=== PATIENT | female | born 1960 | race Caucasian/White ===

== ENCOUNTER 2020-10-13 11:31 | Emergency (ER) | payer MEDICARE, MEDICAID, SELFPAY ==
[2020-10-13] VITALS (7 sets, daily range): BP systolic 110–153; BP diastolic 76–100; PULSE 80–100; RESP 16–22; TEMP -12.7–37.7; O2SAT 92–95; BMI 24.2
--- NOTE | 2020-10-13 11:59 | XR_ITS ---
WS: [id number] Portable AP upright chest, 10/13/2020 Clinical Data: COVID/SOB Comparison: None. Findings: No nodules, masses or effusions are seen. The heart is normal. The pulmonary vascularity is not increased. No pneumonia or pneumothorax is seen. The aortic arch and descending aorta show mild tortuosity. The diaphragms are flattened. XR/XR chest 1V portable [id number] Impression: Atherosclerosis and hyperinflation.
--- NOTE | 2020-10-13 19:29 | PC.NURSE ---
Assumed care of this patient at this time.
--- NOTE | 2020-10-13 19:59 | ED_ITS ---
HPI - COVID General: Chief Complaint: COVID symptoms Stated Complaint: sob, covid positive Time Seen by Provider: 10/13/20 19:30 Triage information: Has fever, cough or shortness of breath . Exposure to COVID + person last 14 days History of Present Illness: HPI Narrative: 60-year-old female says she has been sick since 10/05 or so. She is experienced fever, nausea, diarrhea, body aches. She says she has not been able to eat because she is very weak generally. She has been coughing, and has gotten short of breath today. No sputum production. She tested positive on 10/06 at [facility]. complaint: known COVID positive Prior covid testing: yes, results known Prior testing date: 10/06/20 COVID 19 common symptoms: positive fever(s), chills, cough, non-productive cough, dyspnea, fatigue, body aches, headache(s), throat pain, nasal congestion, nausea and diarrhea; negative vomiting COVID 19 other sytmptoms: positive chest pressure; negative requiring oxygen, respiratory distress, cyanosis or confusion Onset (ago): day(s) Severity: moderate Pertinent comorbid conditions: diabetes COVID Results: No Data to Display Review of Systems Const: Reports: fever(s), chills, body aches and fatigue ENMT: Reports: throat pain and nasal congestion Resp: Reports: dyspnea and non-productive cough GI: Reports: nausea and diarrhea; Denies: vomiting Neuro: Reports: headache(s); Denies: confusion Physical Exam Const: COMMON NORMALS: no acute distress and patient oriented x3 GENERAL APPEARANCE: cooperative and ill appearing; not frail appearing ORIENTATION/CONSCIOUSNESS: Yes awake Eye: COMMON NORMALS: Equal, round and reactive pupils present and EOMs intact bilaterally PUPIL: Yes Equal, round and reactive pupils present Chest: COMMONS NORMALS: normal inspection of the chest Resp: COMMON NORMALS: No use of accessory muscles and clear to auscultation bilaterally EFFORT & INSPECTION: Yes tachypneic and No respiratory distress AUSCULTATION: clear to auscultation bilaterally Cardio: COMMON NORMALS: regular rate and regular rhythm RATE: regular rate RHYTHM: regular rhythm GI: COMMON NORMALS: Soft to palpation INSPECTION: Yes normal to inspection PALPATION: Yes Soft to palpation Neuro: COMMON NORMALS: patient oriented x3 Course Vital Signs: Vital signs: Vital Signs Temperature 99.5 F 10/13/20 21:32 Pulse Rate 80 10/13/20 22:00 Respiratory Rate 18 10/13/20 22:00 Blood Pressure 145/77 10/13/20 22:00 Pulse Oximetry 94 10/13/20 22:00 MDM - COVID 2 MDM Narrative: Medical decision making narrative: 60-year-old female with COVID-19. Her symptoms are mainly gastrointestinal. She is having trouble eating. She is short of breath as well, but her oxygen saturations are above 93% on room air at rest. She is diabetic. She is gotten monoclonal antibody infusion here. We will send her home with symptomatic treatment otherwise. Lab Data: Labs: Lab Results 10/13/20 10/13/20 10/13/20 Range/Units 20:09 20:10 20:10 WBC 6.3 (4.0-10.0) 10^3/ uL RBC 5.53 H (4.1-5.3) 10^6/u L Hgb 15.8 H (11.5-15.3) g/dL Hct 49.3 H (37.0-47.0) % MCV 89.2 (81-99) fl MCH 28.6 (28.0-34.0) pg MCHC 32.0 (30.0-36.0) g/dL RDW 13.8 (12.1-15.1) % Plt Count 223 (130-400) 10^3/c mm MPV 11.5 H (7.4-10.4) fL Neut % (Auto) 67.7 % Lymph % (Auto) 24.6 % [place] % (Auto) 7.0 % Eos % (Auto) 0.2 % Baso % (Auto) 0.2 % Neut # (Auto) 4.23 (1.8-7.7) 10^3/u L Lymph # (Auto) 1.5 (0.8-4.8) 10^3/u L [place] # (Auto) 0.4 (0.2-0.9) 10^3/u L Eos # (Auto) 0.0 (0.0-0.8) 10^3/u L Baso # (Auto) 0.0 (0.0-0.1) 10^3/u L Nucleated RBC % (a uto) 0 % Nucleated RBCs # 0.0 /100WBC D-Dimer 2.79 H (0-0.59) ug/mIFE U Specimen Type Arterial Sample Site Brachial, right ABG pH 7.42 (7.35-7.45) ABG pCO2 33.4 L (35-45) mmHg ABG pO2 61.3 L (80.0-100.0) mmH g ABG HCO3 21.4 L (22-26) mmol/L ABG Base Excess -2.3 L (-2.0-2.0) mmol/ L [place] Test N/a Hematocrit 46.8 (37-47) % O2 Delivery Device Room air FiO2 21.0 % [employer] ID Harkr Sodium (136-145) mmol/L Potassium (3.5-5.1) mmol/L Chloride (98-107) mmol/L Carbon Dioxide (22-29) mmol/L Anion Gap (5-19) BUN (8-23) mg/dL Creatinine (0.5-0.9) mg/dL GFR Calculation (90-130) mL/min Glucose (65-115) mg/dL Calculated Osmolal ity (285-295) mOsm/k g Lactic Acid (0.5-2.2) mmol/L Calcium (8.5-10.5) mg/dL Total Bilirubin (0.15-1.2) mg/dL AST (0-32) U/L ALT (0-33) U/L Alkaline Phosphata se (35-105) IU/L C-Reactive Protein (0.0-4.9) mg/L Total Protein (6.6-8.7) g/dL Albumin (3.5-5.2) g/dL Globulin (1.3-4.6) g/dL 10/13/20 10/13/20 Range/Units 20:10 20:10 WBC (4.0-10.0) 10^3/ uL RBC (4.1-5.3) 10^6/u L Hgb (11.5-15.3) g/dL Hct (37.0-47.0) % MCV (81-99) fl MCH (28.0-34.0) pg MCHC (30.0-36.0) g/dL RDW (12.1-15.1) % Plt Count (130-400) 10^3/c mm MPV (7.4-10.4) fL Neut % (Auto) % Lymph % (Auto) % [place] % (Auto) % Eos % (Auto) % Baso % (Auto) % Neut # (Auto) (1.8-7.7) 10^3/u L Lymph # (Auto) (0.8-4.8) 10^3/u L [place] # (Auto) (0.2-0.9) 10^3/u L Eos # (Auto) (0.0-0.8) 10^3/u L Baso # (Auto) (0.0-0.1) 10^3/u L Nucleated RBC % (a uto) % Nucleated RBCs # /100WBC D-Dimer (0-0.59) ug/mIFE U Specimen Type Sample Site ABG pH (7.35-7.45) ABG pCO2 (35-45) mmHg ABG pO2 (80.0-100.0) mmH g ABG HCO3 (22-26) mmol/L ABG Base Excess (-2.0-2.0) mmol/ L [place] Test Hematocrit (37-47) % O2 Delivery Device FiO2 % [employer] ID Sodium 135 L (136-145) mmol/L Potassium 4.5 (3.5-5.1) mmol/L Chloride 94 L (98-107) mmol/L Carbon Dioxide 20 L (22-29) mmol/L Anion Gap 25.5 H (5-19) BUN 14 (8-23) mg/dL Creatinine 0.8 (0.5-0.9) mg/dL GFR Calculation 73.2 L (90-130) mL/min Glucose 165 H (65-115) mg/dL Calculated Osmolal ity 284 L (285-295) mOsm/k g Lactic Acid 3.3 H (0.5-2.2) mmol/L Calcium 9.6 (8.5-10.5) mg/dL Total Bilirubin 0.9 (0.15-1.2) mg/dL AST 64 H (0-32) U/L ALT 37 H (0-33) U/L Alkaline Phosphata se 66 (35-105) IU/L C-Reactive Protein 193.2 H (0.0-4.9) mg/L Total Protein 7.9 (6.6-8.7) g/dL Albumin 3.8 (3.5-5.2) g/dL Globulin 4.1 (1.3-4.6) g/dL COVID Results: No Data to Display Discharge Plan Discharge Patient Disposition: Home Clinical Impression: COVID-19 Condition: Stable Prescriptions: New Zofran 4 mg tablet 4 mg PO Q6H PRN (Reason: nausea and vomiting) Qty: 10 RF: 0 Prevacid 30 mg capsule,delayed release(DR/EC) 30 mg PO DAILY Qty: 30 RF: 0 No Action metformin 500 mg tablet 1,000 mg PO BID RF: 0 zinc 100 mg Tablet 100 mg PO DAILY RF: 0 Vitamin C 250 mg Tablet 250 mg PO DAILY RF: 0 lisinopril 10 mg tablet 10 mg PO DAILY RF: 0 Vitamin D3 25 mcg (1,000 unit) Tablet 25 mcg PO DAILY RF: 0 fenofibrate 54 mg tablet 54 mg PO DAILY RF: 0 Discharge Orders: Discharge ED (Routine); Ordered 10/13/20 Ordered By: Vikram Walker Discharge Diet: Advance as tolerated and Clear Liquid Discharge Activity: Limit activity as instructed Patient Instructions: Gastroenteritis (ED) Activity Restrictions/Additional Instructions: Use medication for symptomatic treatment as directed. It will help with your nausea, stomach pain, etc. Follow a clear liquid diet and advance as tolerated. Return for worsening shortness of breath, inability to tolerate liquids despite treatment, any other concerning symptoms. Coding Level of Care Code ED Gas Treater for Ralph Fwd Exam Detailed
[2020-10-13 20:20] LABS: ABG PCO2 33.4 mmHg (35-45); ABG PH Result 7.42 (7.35-7.45); Arterial Blood Gas Hematocrit 46.8 % (37-47); Base Excess ABG -2.3 mmol/L (-2.0-2.0); Blood Gas Operator Identificat HARKR; Blood Gas Sample Site Brachial, right; Blood Gas Sample Type Arterial; HCO3 ABG 21.4 mmol/L (22-26); Oxygen Device ROOM AIR; PO2 ABG 61.3 mmHg (80.0-100.0)
[2020-10-13 20:27] LABS: Basophils % 0.2 %; Eosinophils % 0.2 %; Hematocrit 49.3 % (37.0-47.0); Hemoglobin 15.8 g/dL (11.5-15.3); Lymphocytes # 1.5 10^3/uL (0.8-4.8); Lymphocytes % 24.6 %; Mean Corpuscular Hemoglobin 28.6 pg (28.0-34.0); Mean Corpuscular Volume 89.2 fl (81-99); Mean Platelet Volume 11.5 fL (7.4-10.4); Monocytes # 0.4 10^3/uL (0.2-0.9); Neutrophils # 4.23 10^3/uL (1.8-7.7); Neutrophils % 67.7 %; Nucleated Red Blood Cells % 0 %; Platelet Count 223 10^3/cmm (130-400); Red Blood Count 5.53 10^6/uL (4.1-5.3); Red Cell Distribution Width 13.8 % (12.1-15.1); White Blood Count 6.3 10^3/uL (4.0-10.0)
[2020-10-13 20:50] LABS: Lactic Sepsis W/Reflex 3.3 mmol/L (0.5-2.2)
[2020-10-13] MEDS: ondansetron 2 mg/ML SDV 2 mL 4 MG IV (21:04)
[2020-10-13] MEDS: dexamethasone 4 mg/mL INJ 6 MG IVP (21:04)
[2020-10-13] MEDS: sodium chloride 0.9% 1,000 ML 999 ML IV (21:05)
[2020-10-13 21:06] LABS: Alanine Aminotransferase 37 U/L (0-33); Albumin Level 3.8 g/dL (3.5-5.2); Alkaline Phosphatase 66 IU/L (35-105); Blood Urea Nitrogen 14 mg/dL (8-23); C Reactive Protein 193.2 mg/L (0.0-4.9); Calcium 9.6 mg/dL (8.5-10.5); Carbon Dioxide 20 mmol/L (22-29); Chloride 94 mmol/L (98-107); Globulin 4.1 g/dL (1.3-4.6); Glomerular Filtration Rate 73.2 mL/min (90-130); Glucose 165 mg/dL (65-115); Osmolality Calculated 284 mOsm/kg (285-295); Sodium 135 mmol/L (136-145); Total Bilirubin 0.9 mg/dL (0.15-1.2); Total Protein 7.9 g/dL (6.6-8.7)
[2020-10-13 21:13] LABS: Anion Gap 25.5 (5-19); Aspartate Amino Transferase 64 U/L (0-32); Potassium 4.5 mmol/L (3.5-5.1)
[2020-10-13 21:22] LABS: D Dimer 2.79 ug/mIFEU (0-0.59)
[2020-10-13 22:10] LABS: Reflex Lactate Order REFLEX LACTIC ORDERD
== END 2020-10-13 22:32 | disposition home or self-care (01) ==
PROVIDERS: Emergency Provider Emergency Medicine
DX: U07.1 COVID-19 (principal); Z79.84 Long term (current) use of oral hypoglycemic drugs
CPT/HCPCS: 36600; 71045; 80053; 82803; 83605; 85025; 85378; 86140; 96365; 96375; 99284; J1100; J2405; J7030

== ENCOUNTER 2021-06-09 15:03 | Emergency (ER) | payer MEDICARE, MEDICAID, SELFPAY ==
[2021-06-09 15:14] VITALS: BP 142/77; PULSE 82; RESP 18; TEMP 36.1; O2SAT 96; BMI 29.0
--- NOTE | 2021-06-09 15:24 | ECG_ITS ---
[facility] Test Date: 2021-06-09 Pat Name: Marybeth Montague Department: Room: Gender: Female Fudger: : 1960 Requested By: Duane Rajan Order Number: [id number] Abhay MD: James Warren M.D. Measurements Intervals [place] Rate: 76 P: 51 WV: 192 QRS: 24 QRSD: 69 T: 46 QT: 378 QTc: 427 Interpretive Statements SINUS RHYTHM NONSPECIFIC T-WAVE ABNORMALITY No previous ECG available for comparison Electronically Signed On 06-10-2021 8:14:08 CDT by James Warren M.D. [id number]
--- NOTE | 2021-06-09 15:24 | CTR_ITS ---
PROCEDURE INFORMATION: Exam: CT Head Without Contrast Exam date and time: 06/09/2021 3:47 PM Age: 61 years old Clinical indication: Syncope and collapse; Patient HX: Syncope w face first fall from seated; Additional info: + loc, hit head TECHNIQUE: Imaging protocol: Computed tomography of the head without contrast. Axial, coronal and sagittal reformatted images were created and reviewed. Radiation optimization: All CT scans at this facility use at least one of these dose optimization techniques: automated exposure control; mA and/or kV adjustment per patient size (includes targeted exams where dose is matched to clinical indication); or iterative reconstruction. COMPARISON: No relevant prior studies available. RADIATION DOSE METRICS: Total DLP (mGy-cm): 794.62 FINDINGS: Brain: Subtle, patchy areas of hypoattenuation in the periventricular and subcortical white matter, nonspecific but suggestive of mild chronic small vessel ischemic disease. No CT evidence of acute intracranial hemorrhage or acute territorial infarction. No significant mass effect or midline shift. Basal cisterns patent. Cerebral ventricles: Prominence of the cortical sulci, cisterns and ventricular system, consistent with cerebral and cerebellar volume loss. Paranasal sinuses: Unremarkable. No fluid levels. Mastoid air cells: Grossly unremarkable. Vasculature: Calcific atherosclerotic disease in the cavernous internal carotid arteries, as well as the vertebro-basilar system. Bones/joints: No acute osseous abnormality. Soft tissues: Grossly unremarkable. CT/CT head wo con* [id number] IMPRESSION: 1. No CT evidence of acute intracranial pathology. 2. Additional findings, as above.
--- NOTE | 2021-06-09 15:24 | CTR_ITS ---
PROCEDURE INFORMATION: Exam: CT Cervical Spine Without Contrast Exam date and time: 06/09/2021 3:52 PM Age: 61 years old Clinical indication: Injury or trauma; Blunt trauma; Patient HX: C/O neck/l shoulder pain after face first fall from seated; Additional info: Left shoulder pain /close to spine TECHNIQUE: Imaging protocol: Computed tomography images of the cervical spine without contrast. Axial, coronal and sagittal reformatted images were created and reviewed. Radiation optimization: All CT scans at this facility use at least one of these dose optimization techniques: automated exposure control; mA and/or kV adjustment per patient size (includes targeted exams where dose is matched to clinical indication); or iterative reconstruction. COMPARISON: CT facial bones wo con* [id number] 06/09/2021 3:50 PM RADIATION DOSE METRICS: Total DLP (mGy-cm): 420.75 FINDINGS: Bones/joints: Osteopenia Normal cervical lordosis. Congenital nonunion of the C1 posterior arch. No CT evidence of acute fracture, dislocation or subluxation. Alignment anatomic. Vertebral body heights maintained. Discs/Spinal canal/Neural foramina: Mild multilevel degenerative changes, characterized by disc space narrowing, osteophytosis and uncovertebral and facet joint hypertrophy. Mild multilevel neural foraminal narrowing, predominantly at C5-C6 and C7. No significant spinal stenosis. Lungs: Grossly unremarkable. Soft tissues: Grossly unremarkable. CT/CT cervical spin wo con* [id number] IMPRESSION: 1. No CT evidence of acute cervical spine traumatic injury. 2. Additional findings, as above.
--- NOTE | 2021-06-09 15:24 | CTR_ITS ---
PROCEDURE INFORMATION: Exam: CT Maxillofacial Without Contrast Exam date and time: 06/09/2021 3:50 PM Age: 61 years old Clinical indication: Injury or trauma; Blunt trauma (contusions or hematomas); Patient HX: Face first fall from seated, bloody nose; Additional info: Nose bleed, swelling, possioble nasal deformity TECHNIQUE: Imaging protocol: Computed tomography images of the face without contrast. Axial, coronal and sagittal reformatted images were created and reviewed. Radiation optimization: All CT scans at this facility use at least one of these dose optimization techniques: automated exposure control; mA and/or kV adjustment per patient size (includes targeted exams where dose is matched to clinical indication); or iterative reconstruction. COMPARISON: CT head wo con* [id number] 06/09/2021 3:47 PM RADIATION DOSE METRICS: Total DLP (mGy-cm): 703.9 FINDINGS: Orbital cavities: Orbits are normal. Globes are unremarkable. Bones/joints: Mildly displaced fractures of the anterior nasal bones. Paranasal sinuses: Minimal ethmoid and left maxillary sinus mucosal thickening. Soft tissues: Perinasal soft tissue injury. Other findings: Poor dentition. CT/CT facial bones wo con* [id number] IMPRESSION: 1. Mildly displaced fractures of the anterior nasal bones. 2. Additional findings, as above.
--- NOTE | 2021-06-09 15:26 | ED_ITS ---
Documented by User: SARAH Benoit 06/16/21 06:56 HPI - Head Injury General: Chief complaint: Head Injury Stated complaint: Fell and hit head and nose bleeding Time Seen by Provider: 06/09/21 15:20 History of Present Illness: Presents with nose pain. Also having left shoulder pain. History of nausea vomiting diarrhea first thing this morning. Stomach flu is going through their family presently. Patient said she went went to the bathroom. Then went sit on the edge of bed and then she passed out and woke up face down the floor. She is said she had bleeding from her nose and abrasion to her head and then abrasion on her upper gum underneath her dentures. Patient said stomach is feeling better now and she is no longer nauseous. Bleeding from the nose has stopped. History of hypertension. Associated symptoms: Reports nausea; Deny vomiting Review of Systems Narrative: Patient had syncopal episode after vomiting diarrhea this morning. Fell and struck face. Const: Denies: fever(s), chills or body aches Eyes: Denies: eye discomfort ENMT: Reports: dental pain (Has abrasion upper gum after fall.) and other (Nose and had nosebleed and does have swelling to the nose.); Denies: throat pain Card: Denies: chest pain Resp: Denies: dyspnea GI: Reports: nausea and diarrhea; Denies: abdominal pain or vomiting Musc: Reports: other (Pain upper left shoulder between cervical spine and neck) Skin/Breast: Denies: rash Neuro: Denies: headache(s) Psych: Denies: depression or suicidal ideation Physical Exam Const: COMMON NORMALS: no acute distress, patient oriented x3 and alert HENMT: COMMON NORMALS: normocephalic and external ears normal HEAD & SCALP: normocephalic NOSE: Abnormal external nose present (Swelling) nasal laceration (1 mm to bridge no active bleeding), nasal deviation (Possible), lexis al tenderness and nasal swelling EXTERNAL EAR: Yes external ears normal TEETH & GINGIVA: Yes other (Superficial laceration to upper gum right side in the front no active bleed) Eye: COMMON NORMALS: EOMs intact bilaterally Neck/C-Spine: COMMON NORMALS: no JVD CERVICAL SPINE: Yes cervical ROM normal, No pain with cervical ROM, Yes Paracervical muscle tenderness left, No Paracervical spasm and Yes Trapezius muscle tenderness left Resp: COMMON NORMALS: normal respiratory effort and No use of accessory muscles Cardio: COMMON NORMALS: no JVD GI: INSPECTION: Yes normal to inspection Extremity: COMMON NORMALS: normal to inspection and full ROM Neuro: COMMON NORMALS: patient oriented x3 SENSORIUM/ORIENTATION: Yes alert SPEECH: speech normal PUPIL EXAM: Normal pupillary reactivity/response: bilateral Psych: COMMON NORMALS: mental status grossly normal Skin: COMMON NORMALS: no rashes or lesions noted GENERAL SKIN EXAM: no rashes or lesions noted Course Vital Signs: Vital signs: Vital Signs Temperature 97.0 F L 06/09/21 15:14 Pulse Rate 75 06/09/21 18:06 Respiratory Rate 14 06/09/21 18:06 Blood Pressure 127/81 06/09/21 18:06 Pulse Oximetry 95 06/09/21 18:06 MDM - Head Injury Medcial Decision Making Patient with history of stomach flu virus today. and son have been sick with that also patient vomited and had diarrhea then had a vagal episode fell and landed on her nose from side to bed as she was sitting. X-ray reveals she fractured her nose. She has abrasion left side of her head wrist radiology studies are negative -blood work looks good. EKG was normal. patient is made r eferral to Dr. Velez. Patient given pain medication and DTaP. Patient follow-up if anysignificant worsening symptoms Lab Data : 06/09/21 16:33 06/09/21 16:33 Radiology Impressions Cervical Spine CT 06/09/21 15:24 IMPRESSION: 1. No CT evidence of acute cervical spine traumatic injury. 2. Additional findings, as above. Face CT 06/09/21 15:24 IMPRESSION: 1. Mildly displaced fractures of the anterior nasal bones. 2. Additional findings, as above. Head CT 06/09/21 15:[address]: 1[address] evidence of acute intracranial pathology. 2. Additional findings, as above. Shoulder X-Ray 06/09/21 15:28 IMPRESSION: No acute bony abnormality. Laboratory Results WBC 9.3 10^3/uL (4.0-10.0) 06/09/21 16:33 RBC 5.52 10^6/uL (4.1-5.3) H 06/09/21 16:33 Hgb 15.6 g/dL (11.5-15.3) H 06/09/21 16: Hct 47.2 % (37.0-47.0) H 06/09/21 16: MCV 85.5 fl (81-99) 06/09/21 16: MCH 28.3 pg (28.0-34.0) 06/09/21 16: MCHC 33.1 g/dL (30.0-36.0) 06/09/21 16: RDW 13.2 % (12.1-15.1) 06/09/21 16: Plt Count 220 10^3/cmm (130-400) 06/09/21 16: MPV 10.9 fL (7.4-10.4) H 06/09/21 16: Neut % (Auto) 87.3 % 06/09/21 16: Lymph % (Auto) 7.1 % 06/09/21: [place] % (Auto) 3.8 % 06/09/21 16: Eos % (Auto) 1.0 % 06/09/21 16:33 Baso % (Auto) 0.4 % 06/09/21: Neut # (Auto) 8.08 10^3/uL (1.8-7.7) H 06/09/21: Lymph # (Auto) 0.7 10^3/uL (0.8-4.8) L 06/09/21 16: [place] # (Auto) 0.4 10^3/uL (0.2-0.9) 06/09/21: Eos # (Auto) 0.1 10^3/uL (0.0-0.8) 06/09/21: Baso # (Auto) 0.0 10^3/uL (0.0-0.1) 06/09/21: Nucleated RBC % (auto) 0 % 06/09/21: Nucleated RBCs # 0.0 /100WBC 06/09/21 16:33 Sodium 138 mmol/L (136-145) 06/09/21 16: Potassium 3.9 mmol/L (3.5-5.1) 06/09/21 16: Chloride 103 mmol/L (98-107) 06/09/21 16:33 Carbon Dioxide 23 mmol/L (22-29) 06/09/21 16:33 Anion Gap 15.9 (5-19) 06/09/21 16:33 BUN 11 mg/dL (8-23) 06/09/21 16:33 Creatinine 0.7 mg/dL (0.5-0.9) 06/09/21 16:33 GFR Calculation 85.1 mL/min (90-130) L 06/09/21 16:33 Glucose 212 mg/dL (65-115) H 06/09/21 16:33 Calculated Osmolality 292 mOsm/kg (285-295) 06/09/21 16:33 Calcium 8.3 mg/dL (8.5-10.5) L 06/09/21 16:33 Hepatitis A IgM Ab Not Reportable 06/09/21 17:47 Hep Bs Antigen Non-reactive (Nonreactive) 06/09/21 17:47 Hep B Core IgM Ab Non-reactive (Nonreactive) 06/09/21 17:47 Hepatitis C Antibody Non-reactive (Nonreactive) 06/09/21 17:47 HIV 1&2 Ab & HIV 1 Ag Non-reactive (Non-Reactiv) 06/09/21 17:47 HIV 1&2 Antibody Non-reactive (Non-Reactiv) 06/09/21 17:47 [facility] [place] Reference See comment 06/09/21 17:47 Discharge Plan Discharge Patient Disposition: Home Clinical Impression: Closed fracture nasal bone, Abrasion, Vaso vagal episode Condition: Stable Prescriptions: New hydrocodone-acetaminophen 5-325 mg tablet 1 tab PO TID PRN (Reason: pain) Qty: 14 0RF No Action metformin 500 mg tablet 1,000 mg PO BID 0RF zinc 100 mg Tablet 100 mg PO DAILY 0RF Vitamin C 250 mg Tablet 250 mg PO DAILY 0RF lisinopril 10 mg tablet 10 mg PO DAILY 0RF Vitamin D3 25 mcg (1,000 unit) Tablet 25 mcg PO DAILY 0RF fenofibrate 54 mg tablet 54 mg PO DAILY 0RF Zofran 4 mg tablet 4 mg PO Q6H PRN (Reason: nausea and vomiting) Qty: 10 0RF Prevacid 30 mg capsule,delayed release(DR/EC) 30 mg PO DAILY Qty: 30 0RF Discharge Orders: Discharge ED (Routine); Ordered 06/09/21 Ordered By: Duane Rajan Discharge Diet: Usual diet Discharge Activity: Resume usual activity Activity Restrictions/Additional Instructions: Follow-up with medical provider as directed. Take medications as prescribed. Return to the ER or your medical provider if condition worsens. Please read and understand discharge instructions. If any questions ask please. We will contact you with appointment for Dr. Velez's office. Light ice to nose as needed. Can use Afrin nose spray to help with the congestion in the nose. 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 and son have been sick with that also patient vomited and had diarrhea then had a vagal episode fell an d landed on her nose from side to bed as she was sitting. X-ray reveals she fractured her nose. She has abrasion left side of her head wrist radiology studies are negative -blood work looks good. EKG was normal. patient is made referral to Dr. Velez. Patient given pain medication and DTaP. Patient follow- up if anysignificant worsening symptoms Dr. Hernandez - Patient evaluation, diagnosis, and management was performed independently by Duane Rajan. I did not personally see the patient nor staff the patient with patient's provider. I did review the patient's note today and I believe this note is consistent. Lab Data : 06/09/21 16:33 06/09/21 16:33 Radiology Impressions Cervical Spine CT 06/09/21 15:24 IMPRESSION: 1. No CT evidence of acute cervical spine traumatic injury. 2. Additional findings, as above. Face CT 06/09/21 15:24 IMPRESSION: 1. Mildly displaced fractures of the anterior nasal bones. 2. Additional findings, as above. Head CT 06/09/21 15:24 IMPRESSION: 1. No CT evidence of acute intracranial pathology. 2. Additional findings, as above. Shoulder X-Ray 06/09/21 15:28 IMPRESSION: No acute bony abnormality. Laboratory Results WBC 9.3 10^3/uL (4.0-10.0) 06/09/21 16:33 RBC 5.52 10^6/uL (4.1-5.3) H 06/09/21 16:33 Hgb 15.6 g/dL (11.5-15.3) H 06/09/21 16:33 Hct 47.2 % (37.0-47.0) H 06/09/21 16:33 MCV 85.5 fl (81-99) 06/09/21 16:33 MCH 28.3 pg (28.0-34.0) 06/09/21 16:33 MCHC 33.1 g/dL (30.0-36.0) 06/09/21 16:33 RDW 13.2 % (12.1-15.1) 06/09/21 16:33 Plt Count 220 10^3/cmm (130-400) 06/09/21 16:33 MPV 10.9 fL (7.4-10.4) H 06/09/21 16:33 Neut % (Auto) 87.3 % 06/09/21 16:33 Lymph % (Auto) 7.1 % 06/09/21 16:33 [place] % (Auto) 3.8 % 06/09/21 16:33 Eos % (Auto) 1.0 % 06/09/21 16:33 Baso % (Auto) 0.4 % 06/09/21 16:33 Neut # (Auto) 8.08 10^3/uL (1.8-7.7) H 06/09/21 16:33 Lymph # (Auto) 0.7 10^3/uL (0.8-4.8) L 06/09/21 16:33 [place] # (Auto) 0.4 10^3/uL (0.2-0.9) 06/09/21 16:33 Eos # (Auto) 0.1 10^3/uL (0.0-0.8) 06/09/21 16:33 Baso # (Auto) 0.0 10^3/uL (0.0-0.1) 06/09/21 16:33 Nucleated RBC % (auto) 0 % 06/09/21 16:33 Nucleated RBCs # 0.0 /100WBC 06/09/21 16:33 Sodium 138 mmol/L (136-145) 06/09/21 16:33 Potassium 3.9 mmol/L (3.5-5.1) 06/09/21 16:33 Chloride 103 mmol/L (98-107) 06/09/21 16:33 Carbon Dioxide 23 mmol/L (22-29) 06/09/21 16:33 Anion Gap 15.9 (5-19) 06/09/21 16:33 BUN 11 mg/dL (8-23) 06/09/21 16:33 Creatinine 0.7 mg/dL (0.5-0.9) 06/09/21 16:33 GFR Calculation 85.1 mL/min (90-130) L 06/09/21 16:33 Glucose 212 mg/dL (65-115) H 06/09/21 16:33 Calculated Osmolality 292 mOsm/kg (285-295) 06/09/21 16:33 Calcium 8.3 mg/dL (8.5-10.5) L 06/09/21 16:33 Hepatitis A IgM Ab Not Reportable 06/09/21 17:47 Hep Bs Antigen Non-reactive (Nonreactive) 06/09/21 17:47 Hep B Core IgM Ab Non-reactive (Nonreactive) 06/09/21 17:47 Hepatitis C Antibody Non-reactive (Nonreactive) 06/09/21 17:47 HIV 1&2 Ab & HIV 1 Ag Non-reactive (Non-Reactiv) 06/09/21 17:47 HIV 1&2 Antibody Non-reactive (Non-Reactiv) 06/09/21 17:47 Misc Test Reference See comment 06/09/21 17:47 Discharge Plan Discharge Patient Disposition: Home Clinical Impression: Closed fracture nasal bone, Abrasion, Vaso vagal episode Condition: Stable Prescriptions: New hydrocodone-acetaminophen 5-325 mg tablet 1 tab PO TID PRN (Reason: pain) Qty: 14 0RF No Action metformin 500 mg tablet 1,000 mg PO BID 0RF zinc 100 mg Tablet 100 mg PO DAILY 0RF Vitamin C 250 mg Tablet 250 mg PO DAILY 0RF lisinopril 10 mg tablet 10 mg PO DAILY 0RF Vitamin D3 25 mcg (1,000 unit) Tablet 25 mcg PO DAILY 0RF fenofibrate 54 mg tablet 54 mg PO DAILY 0RF Zofran 4 mg tablet 4 mg PO Q6H PRN (Reason: nausea and vomiting) Qty: 10 0RF Prevacid 30 mg capsule,delayed release(DR/EC) 30 mg PO DAILY Qty: 30 0RF Discharge Orders: Discharge ED (Routine); Ordered 06/09/21 Ordered By: Duane Rajan Discharge Diet: Usual diet Discharge Activity: Resume usual activity Activity Restrictions/Additional Instructions: Follow-up with medical provider as directed. Take medications as prescribed. Return to the ER or your medical provider if condition worsens. Please read and understand discharge instructions. If any questions ask please. We will contact you with appointment for Dr. Velez's office. Light ice to nose as needed. Can use Afrin nose spray to help with the congestion in the nose. 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
--- NOTE | 2021-06-09 15:28 | XRR_ITS ---
PROCEDURE INFORMATION: Exam: XR Left Shoulder Exam date and time: 06/09/2021 3:58 PM Age: 61 years old Clinical indication: Injury or trauma; Fall; Blunt trauma (contusions or hematomas); Shoulder; Left; Additional info: Fall, shoulder pain, positive loss of consciousness TECHNIQUE: Imaging protocol: XR Left shoulder. Views: 2 or more views. COMPARISON: CT cervical spin wo con* [id number] 06/09/2021 3:52 PM FINDINGS: Bones/joints: There is no acute fracture or dislocation. The acromioclavicular joint alignment is appropriate. The subacromial joint space is well-preserved. The glenohumeral joint is unremarkable. No calcific tendinopathy. The visualized ribs are intact. Lungs: The visualized lung apex is clear. Soft tissues: Normal. XR/XR shoulder LT min 2V* [id number] IMPRESSION: No acute bony abnormality.
[2021-06-09 16:33] VITALS: BP 122/82; PULSE 81; RESP 20; O2SAT 94
[2021-06-09 16:43] LABS: Basophils % 0.4 %; Eosinophils # 0.1 10^3/uL (0.0-0.8); Hematocrit 47.2 % (37.0-47.0); Hemoglobin 15.6 g/dL (11.5-15.3); Lymphocytes # 0.7 10^3/uL (0.8-4.8); Lymphocytes % 7.1 %; Mean Corpuscular HGB Conc 33.1 g/dL (30.0-36.0); Mean Corpuscular Hemoglobin 28.3 pg (28.0-34.0); Mean Corpuscular Volume 85.5 fl (81-99); Mean Platelet Volume 10.9 fL (7.4-10.4); Monocytes # 0.4 10^3/uL (0.2-0.9); Monocytes % 3.8 %; Neutrophils # 8.08 10^3/uL (1.8-7.7); Neutrophils % 87.3 %; Nucleated Red Blood Cells % 0 %; Platelet Count 220 10^3/cmm (130-400); Red Blood Count 5.52 10^6/uL (4.1-5.3); Red Cell Distribution Width 13.2 % (12.1-15.1); White Blood Count 9.3 10^3/uL (4.0-10.0)
[2021-06-09] MEDS: HYDROcodone-acetaminophen 5-325 mg Tablet 1 TAB PO (16:47)
[2021-06-09] MEDS: tetanus-dipt-pertussis 0.5 mL SDV IM (16:47)
[2021-06-09 17:00] LABS: Anion Gap 15.9 (5-19); Blood Urea Nitrogen 11 mg/dL (8-23); Calcium 8.3 mg/dL (8.5-10.5); Carbon Dioxide 23 mmol/L (22-29); Chloride 103 mmol/L (98-107); Glomerular Filtration Rate 85.1 mL/min (90-130); Glucose 212 mg/dL (65-115); Osmolality Calculated 292 mOsm/kg (285-295); Potassium 3.9 mmol/L (3.5-5.1); Sodium 138 mmol/L (136-145)
[2021-06-09 18:06] VITALS: BP 127/81; PULSE 75; RESP 14; O2SAT 95
[2021-06-09 18:39] LABS: HIV 1 & 2 Antibody Non-Reactive (Non-Reactiv); HIV 1 & 2 Antigen Non-Reactive (Non-Reactiv)
[2021-06-09 18:41] LABS: Hepatitis B Core IgM Non-Reactive (Nonreactive); Hepatitis B Surface Antigen Non-Reactive (Nonreactive); Hepatitis C Virus Antibody Non-Reactive (Nonreactive)
--- NOTE | 2021-06-12 12:59 | DCPLANNER ---
Addendum entered by Lexy Willis 07/20/21 11:50: Patient had a follow up appointment scheduled with Dr. Velez on 06.15.21 - patient did attend appointment. Original Note: human resources benefits manager had message to schedule a follow up appointment for patient with . human resources benefits manager sent patients information to the office of Dr. Velez. Patients information will be reviewed. Clinic will call patient with appointment information.
== END 2021-06-09 18:08 | disposition home or self-care (01) ==
PROVIDERS: Nurse Practitioner Family; Emergency Provider Nurse Practitioner Family
DX: S02.2XXA Fracture of nasal bones, initial encounter for closed fracture (principal); W18.30XA Fall on same level, unspecified, initial encounter; R55 Syncope and collapse; Z23 Encounter for immunization
CPT/HCPCS: 70450; 70486; 72125; 73030; 80048; 80074; 85025; 87806; 90471; 90715; 93005; 99283

== ENCOUNTER 2021-07-26 09:32 | Outpatient (CLI) | payer MEDICARE, MEDICAID, SELFPAY ==
--- NOTE | 2021-07-26 09:53 | MR_ITS ---
WS: [id number] MRI LEFT SHOULDER NONCONTRAST TECHNIQUE: Sagittal T2, coronal T1, T2 and proton density imaging. Axial gradient PDE imaging. CLINICAL INFORMATION: L SHOULDER PAIN COMPARISON: None. FINDINGS: Mild degenerative arthritis AC joint. Mild downsloping acromion. Slight subacromial spurring. Mild ed bárbara at the AC joint. Small amount of subacromial/subdeltoid fluid. Chronic thinning of the distal supraspinatus with tendinopathy. Tiny tear supraspinatus insertion ant eriorly. No tendon retraction. Normal infraspinatus. Normal teres minor. Normal subscapularis. Normal biceps tendon in the bicipital groove. Normal biceps labral anchor. Normal intra-articular bic eps tendon. Glenoid labrum appears grossly normal. Biceps tendon intact within the bicipital groove. Cystic degenerative change involving the greater tuberosity. Otherwise normal bone marrow signal. MR/MR shoulder LT wo con* [id number] IMPRESSION: 1. Mild degenerative arthritis at the AC joint with mild downsloping acromion. Slight subacromial spurring. 2. Tiny insertional tear supraspinatus anteriorly. No tendon retraction. Mild tendinopathy supraspinatus. 3. Rotator cuff is otherwise normal in appearance. 4. Normal biceps tendon in the bicipital groove. 5. Cystic degenerative changes involving the greater tuberosity. 6. Small amount of subacromial/subdeltoid fluid.
== END 2021-07-26 09:33 | disposition home or self-care (01) ==
LOC: RAD 09:33
PROVIDERS: Visit Provider Nurse Practitioner Family
DX: M19.012 Primary osteoarthritis, left shoulder (principal); M75.112 Incomplete rotator cuff tear or rupture of left shoulder, not specified as traumatic; M25.512 Pain in left shoulder
CPT/HCPCS: 73221

== ENCOUNTER 2021-09-11 08:45 | Outpatient (CLI) | payer MEDICARE, MEDICAID, SELFPAY ==
--- NOTE | 2021-09-11 08:51 | FL_ITS ---
WS: [id number] MODIFIED BARIUM SWALLOW HISTORY: Other dysphagia FLUOROSCOPY TIME: 2min [id number] # of spot films: 2 Modified barium swallow was performed by the speech pathologist. Fluoroscopy was provided with the pa tient in a lateral projection. Multiple food consistencies were provided. Patient swallowed all foods without difficulty. There is very minimal delay in transit of the more so lid foods at the level of the epiglottis. No aspiration or laryngeal penetration. FL/FL barium swallow modifd [id number] IMPRESSION: 1. No significant swallowing deficits. No laryngeal penetration or aspiration. Please see speech therapist report also for recommendations.
== END 2021-09-11 08:46 | disposition home or self-care (01) ==
PROVIDERS: PCP Nurse Practitioner Family; Visit Provider Family Medicine
DX: R13.19 Other dysphagia (principal)
CPT/HCPCS: 74230; 92611

== ENCOUNTER → 2021-10-02 07:54 | Outpatient (BNVA) | payer MEDICARE, MEDICAID, SELFPAY | PROVIDERS: PCP Nurse Practitioner Family; Visit Provider Surgery | DX: Z12.11 Encounter for screening for malignant neoplasm of colon (principal) | CPT/HCPCS: 99203 ==

== ENCOUNTER 2021-11-21 07:14 | Day surgery (SDC) | payer MEDICARE, MEDICAID, SELFPAY ==
[2021-11-19 09:42] VITALS: BMI 27.4
--- NOTE | 2021-11-21 07:40 | P.ANESASSM_ITS ---
Pre-Anesthetic Assessment Height/Weight: Height 1.68 m Weight 77.111 kg Operation Date: 11/21/21 09:00 Proposed Procedures p Colonoscopy 66342,Z12.11(Not Applicable) - Samuel Hassan DO Familial anesthetic complications: none Was Beta Pau taken within 24 hours: N/A Was Clonidine taken within 24 hours: N/A Last intake: > 8 hrs Social No alcohol and No tobacco Exam alert, oriented x 3, clear to auscultation bilaterally and regular rate & rhythm Airway Mallampati: Class II Dentition: false CV/HEM Hypertension Metabolic Diabetes Mellitus and Hyperlipidemia Anesthetic Plan ASA status: 3 Anesthesia: MAC Risk of > 500 ml blood loss (7ml/kg in children): No Medications/Allergies Home Medications Medication Instructions Recorded Confirmed Last Taken Type ascorbic acid (vitamin C) 250 mg 250 mg PO DAILY 10/13/20 11/19/21 10/12/20 History tablet (Vitamin C) cholecalciferol (vitamin D3) 25 25 mcg PO DAILY 10/13/20 11/19/21 10/12/20 History mcg (1,000 unit) tablet (Vitamin D3) fenofibrate 54 mg tablet 54 mg PO DAILY 10/13/20 11/19/21 10/12/20 History lansoprazole 30 mg capsule,delayed 30 mg PO DAILY #30 caps 10/13/20 11/19/21 Unknown Rx release (Prevacid) lisinopril 10 mg tablet 10 mg PO DAILY 10/13/20 11/19/21 10/12/20 History metformin 500 mg tablet 1,000 mg PO BID 10/13/20 11/19/21 10/12/20 History zinc 100 mg tablet 100 mg PO DAILY 10/13/20 11/19/21 10/12/20 History atorvastatin 10 mg tablet 10 mg PO DAILY 10/02/21 11/19/21 Unknown History canagliflozin 100 mg tablet 100 mg PO DAILY 10/02/21 11/19/21 Unknown History (Invokana) Allergies Allergy/AdvReac Type Severity Reaction Status Date / Time erythromycin base Allergy ALGY-Anaphy Verified 11/19/21 09:40 [From Erythrocin] laxis Penicillins Allergy ALGY-Anaphy Verified 11/19/21 09:40 laxis [facility] Anesthesia Medical History Diabetes mellitus Hypertension Surgical History History of laparoscopic cholecystectomy Family History Other Cancer Social History Smoking and tobacco status: former smoker Data Anesthesia Cardiac Studies: No Data to Display
[2021-11-21 08:04] VITALS: BP 144/77; PULSE 67; RESP 18; TEMP 36.5; O2SAT 95
[2021-11-21] MEDS: sodium chloride 0.9% 1,000 ML 30 ML IV (08:38)
[2021-11-21 08:39] LABS: Glucose Point of Care 137 mg/dL (70-110)
--- NOTE | 2021-11-21 09:12 | P.HP_ITS ---
Providers/Chief Complaint Primary Care Provider: Morgan Lyons NP Chief Complaint: Colon cancer screening History of Present Illness Marybeth Montague is a 61 year old female here for colonoscopy Medications/Allergies Home Medications Medication Instructions Recorded Confirmed Last Taken Type ascorbic acid (vitamin C) 250 mg 250 mg PO DAILY 10/13/20 11/19/21 11/19/21 History tablet (Vitamin C) cholecalciferol (vitamin D3) 25 25 mcg PO DAILY 10/13/20 11/19/21 11/19/21 History mcg (1,000 unit) tablet (Vitamin D3) fenofibrate 54 mg tablet 54 mg PO DAILY 10/13/20 11/19/21 11/20/21 History lansoprazole 30 mg capsule,delayed 30 mg PO DAILY #30 caps 10/13/20 11/19/21 11/20/21 Rx release (Prevacid) lisinopril 10 mg tablet 10 mg PO DAILY 10/13/20 11/19/21 11/20/21 History metformin 500 mg tablet 1,000 mg PO BID 10/13/20 11/19/21 11/20/21 History zinc 100 mg tablet 100 mg PO DAILY 10/13/20 11/19/21 11/19/21 History atorvastatin 10 mg tablet 10 mg PO DAILY 10/02/21 11/19/21 11/20/21 History canagliflozin 100 mg tablet 100 mg PO DAILY 10/02/21 11/19/21 11/20/21 History (Invokana) Allergies Allergy/AdvReac Type Severity Reaction Status Date / Time erythromycin base Allergy ALGY-Anaphy Verified 11/19/21 09:40 [From Erythrocin] laxis Penicillins Allergy ALGY-Anaphy Verified 11/19/21 09:40 laxis PFSH Acute PFSH: Medical History Diabetes mellitus Hypertension Surgical History History of laparoscopic cholecystectomy Family History Other Cancer Social History Smoking and tobacco status: former smoker Vitals/I&O/Wt Last Vital Signs Temp 97.7 F 11/21/21 08:04 Pulse 67 11/21/21 08:04 Resp 18 11/21/21 08:04 BP 144/77 11/21/21 08:04 Pulse Ox 95 11/21/21 08:04 O2 Del Method 11/21/21 08:04 Weight last 48 hrs Weight 170 lb A&P Assessment and plan (1) Colon cancer screening: Plan Colonoscopy Attestations Medical Necessity Statement*: Home Coding Level of Care Code Acute [employer] Support Planner for Chg Fwd Diagnoses Colon cancer screening Z12.11
[2021-11-21 09:44] VITALS: BP 89/45; PULSE 62; RESP 18; TEMP 36.5; O2SAT 92
--- NOTE | 2021-11-21 13:46 | ANE.PACU2 ---
Inpatient post-anesthesia follow up: Airway intact: Yes Vital signs: Temperature 97.7 F Pulse Rate 62 Respiratory Rate 18 Blood Pressure 89/45 Pulse Oximetry 92 Oxygen Delivery Me thod Room Air Oxygen Flow Rate Fraction of Inspir ed Oxygen Hydration adequate: Yes Nausea and vomiting: No Pain level: 1 Mental status: Baseline
== END 2021-11-21 10:14 | disposition home or self-care (01) ==
PROVIDERS: PCP Nurse Practitioner Family; Visit Provider Surgery
PROC: 0DJD8ZZ Inspection of Lower Intestinal Tract, Via Natural or Artificial Opening Endoscopic (ICD-10-PCS; CPT 45378; principal; 2021-11-21 09:00)
DX: Z12.11 Encounter for screening for malignant neoplasm of colon (principal); E11.9 Type 2 diabetes mellitus without complications; I10 Essential (primary) hypertension; Z87.891 Personal history of nicotine dependence; E78.5 Hyperlipidemia, unspecified
CPT/HCPCS: 36416; 82962; G0121; J2704; J7030

== ENCOUNTER 2021-12-28 15:55 | Outpatient (CLI) | payer MEDICARE, MEDICAID, SELFPAY ==
--- NOTE | 2021-12-28 | USR_ITS ---
PROCEDURE INFORMATION: Exam: US Duplex Left Lower Extremity Veins, Limited Exam date and time: 12/28/2021 4:43 PM Age: 61 years old Clinical indication: Pain; Leg, lower; Left; Additional info: Lle pain TECHNIQUE: Imaging protocol: Real-time Duplex ultrasound of the Left Lower Extremity with 2-D philip scale, color Doppler flow and spectral waveform analysis with image documentation. Limited exam focused on the left lower extremity veins. COMPARISON: No relevant prior studies available. FINDINGS: Left deep veins: Unremarkable. The common femoral, femoral, proximal profunda femoral, popliteal, posterior tibial, and peroneal veins are patent without thrombus. Normal Doppler waveforms. Normal compressibility and/or augmentation response. Left superficial veins: Unremarkable. Saphenofemoral junction is patent without thrombus. Soft tissues: Unremarkable. US/CV venous duplex [facility] [id number] IMPRESSION: No evidence for deep venous thrombosis.
== END 2021-12-28 15:56 | disposition home or self-care (01) ==
LOC: RAD 15:56
PROVIDERS: PCP Family Medicine; Visit Provider Nurse Practitioner Family
DX: M79.605 Pain in left leg (principal)
CPT/HCPCS: 93971

== ENCOUNTER 2022-01-05 15:56 | Emergency (ER) | payer MEDICARE, MEDICAID, SELFPAY ==
[2022-01-05] VITALS (18 sets, daily range): BP systolic 114–185; BP diastolic 43–94; PULSE 79–107; RESP 16–18; TEMP 36.7; O2SAT 10–97
--- NOTE | 2022-01-05 19:47 | ED_ITS ---
HPI - General Adult General: Chief complaint: General Medical Stated complaint: lockjaw Time Seen by Provider: 01/05/22 16:06 History of Present Illness: Patient is a 61-year-old female who presents to the emergency department with complaints of mandible dislocation. Patient was seen earlier today and underwent manual reduction of her lower mandible. Patient was instructed to adhere to a soft mechanical diet. While trying to eat something at home she redislocated her jaw. Conscious sedation was performed earlier today. She received fentanyl and Versed Patient is currently managing her secretions and has virtually been n.p.o. Associated symptoms: Deny chest pain, confusion, dyspnea, headache(s), malaise, nausea, rash, palpitations or vomiting Review of Systems General: Reports: 10 or more systems reviewed and unremarkable except in HPI and below Const: Denies: fever(s), chills, change in appetite, change in weight, fatigue or malaise Eyes: Denies: change in vision, eye discomfort, eye discharge or eye redness ENMT: Reports: other (TM joint dislocation); Denies: throat pain, enlarged tonsils, odynophagia, hoarseness, ear or mastoid pain, ear discharge, change in hearing, tinnitus, nasal discharge, nasal congestion, post nasal drip or sinus pain Card: Denies: chest pain, palpitations, irregular heart rhythm, edema, dyspnea on exertion, orthopnea or leg pain with exertion Resp: Denies: dyspnea, productive cough, non-productive cough, wheezing, stridor or chest congestion GI: Denies: abdominal pain, nausea, vomiting, dysphagia, diarrhea, constipation, bloating, GI cramping or hematochezia : Denies: flank pain, difficulty voiding, dysuria, urinary frequency, urinary urgency, urinary hesitancy, oliguria or hematuria Musc: Denies: neck pain, back pain, extremity pain, joint pain, joint swelling, joint redness, joint warmth or muscle weakness Skin/Breast: Denies: rash, pruritus, erythema, photosensitivity or new lesions Neuro: Denies: headache(s), numbness in extremities, weakness in extremities, sensory changes, lack of coordination, difficulty walking, frequent falls, dizziness, confusion, Slurred speech present, difficulty communicating thoughts, seizure-like activity or involuntary movements Endo: Denies: polyuria, polydipsia or tired all the time Jayden/Lymph: Denies: easy bruising or easy bleeding PFSH ED PFSH: Medical History Diabetes mellitus Hypertension Surgical History History of laparoscopic cholecystectomy Family History Other Cancer Social History Smoking and tobacco status: former smoker Physical Exam Const: COMMON NORMALS: no acute distress, average body habitus, patient oriented x3, no limitations, healthy appearing, alert and well nourished GENERAL APPEARANCE: cooperative, comfortable and well developed; not in distress and not anxious ORIENTATION/CONSCIOUSNESS: Yes awake, Yes oriented to person, Yes oriented to place and Yes oriented to time HENMT: COMMON NORMALS: normocephalic, atraumatic, hearing grossly normal bilaterally, external ears normal, EAC's normal, TM's normal bilaterally, Normal external nose present and Normal nasal mucous membranes and turbinates present HEAD & SCALP: normal to inspection, normocephalic and atraumatic FACE & SINUS: normal facial exam and face symmetric NOSE: Normal external nose present, Normal nares present and Normal nasal mucous membranes and turbinates present GENERAL EAR: hearing not grossly impaired EXTERNAL EAR: Yes external ears normal and Yes no periauricular adenopathy EXTERNAL AUDITORY CANAL: EAC's normal TYMPANIC MEMBRANE: TM's normal bilaterally MOUTH: Normal oral and palatal mucosa present, lip normal, tongue normal and Normal salivary glands and ducts present THROAT: posterior oropharynx normal, tonsils normal and uvula midline OTHER: Mandible?TM joint tenderness to palpation. Unable to close her jaw Eye: COMMON NORMALS: Equal, round and reactive pupils present, EOMs intact bilaterally, conjunctivae normal, no scleral icterus and no papilledema GENERAL EYE: appearance normal, both eyes and all related structures ALIGNMENT: Yes alignment normal PERIORBITAL: periorbital findings normal EYELID: eyelids normal CONJUNCTIVA: Yes conjunctivae normal PUPIL: Yes Equal, round and reactive pupils present DIRECT OPHTHALMOSCOPY: Yes no papilledema Neck/C-Spine: COMMON NORMALS: full ROM, supple, no meningeal signs and no JVD GENERAL: Yes normal visual inspection CERVICAL SPINE: Yes cervical ROM normal Lymph: LYMPHATIC: no lymphadenopathy noted Chest: COMMONS NORMALS: normal inspection of the chest Breast/axilla inspection: Yes no chest deformity, asymmetry, normal contours, no nodules, masses, tenderness Resp: COMMON NORMALS: normal respiratory effort, No retractions, No use of accessory muscles and clear to auscultation bilaterally EFFORT & INSPECTION: Yes able to speak in complete sentences, Yes symmetric chest movement, No abnormal respiratory pattern, No tachypneic and No respiratory distress AUSCULTATION: clear to auscultation bilaterally Cardio: COMMON NORMALS: no JVD, regular rate, regular rhythm and Peripheral pulses 2+ throughout RATE: regular rate RHYTHM: regular rhythm PERIPHERAL PULSES: Peripheral pulses 2+ throughout GI: COMMON NORMALS: Normal to inspection, nondistended, normoactive bowel sounds present, Soft to palpation and non-tender INSPECTION: Yes normal to inspection PALPATION: Yes Soft to palpation : COMMON NORMALS: Yes no CVA tenderness BLADDER/KIDNEY EXAM: Yes no CVA tenderness and Yes CVA tenderness Back/Pelvis: COMMON NORMALS: no CVA tenderness, thoracic and lumbar spine normal to inspection, no thoracic nor lumbar tenderness, thoraco-lumbar ROM normal and straight leg raise negative bilaterally GENERAL BACK: Yes CVA tenderness and No ecchymosis THORACIC SPINE/UPPER BACK: Yes normal to inspection LUMBAR SPINE/LOWER BACK: Yes normal to inspection and Yes straight leg raise negative bilaterally Extremity: COMMON NORMALS: normal to inspection, full ROM and capillary refill normal GENERAL: Yes normal exam except as noted Neuro: COMMON NORMALS: patient oriented x3 SENSORIUM/ORIENTATION: Yes alert, Yes oriented to person, Yes oriented to place and Yes oriented to time MENINGEAL SIGNS: Yes no meningeal signs Psych: COMMON NORMALS: mental status grossly normal, Normal thought process present, cooperative, normal affect, speech normal and activity/motor behavior normal SPEECH: Yes normal speech THOUGHT PROCESS: Normal thought process present Skin: COMMON NORMALS: no rashes or lesions noted, no wounds, turgor normal, no jaundice, no petechiae and no mottling GENERAL SKIN EXAM: no rashes or lesions noted and turgor normal Procedures Jaw Reduction Time Out Performed: Yes Pre-Treatment Medications Used: opioids and benzodiazepines Reduction successful: Yes Patient Tolerated Procedure: well and no complications Complications: none Additional Comments: Patient mandible was reduced successfully; however, when we released the jaw she dislocated again. We will contact [facility] [place]. Procedural Sedation Indication: fracture/dislocation reduction (Conscious sedation performed for manual reduction of bilateral TM joint reduction) Fentanyl: IV (50 mcg initially, followed by another 50 mcg) Midazolam dose (mg): 4 (Initially 2 mg was given and followed by another 2 mg. Patient was still not sedate enough and therefore we moved onto etomidate) IV Etomidate dose (mg): 10 (Patient responded appropriately to 10 mg of etomidate. We were able to manually reduce her mandible) Complications: none Additional Comments: Patient mandible was reduced successfully; however, when we released the jaw she dislocated again. We will contact [facility] [place] for [place]. Course ED course: Patient arrived with TMJ dislocation. Patient had undergone reduction earlier today. When she got home she attempted to eat mechanical soft diet and dislocated again. I have discussed the case with Dr. Welch. We will be performing a repeat conscious sedation for manual reduction of her mandible Consultations: Consultation #1: [facility]. Dr Love recommends no further interventions. Patient will need to be on a full liquid diet for the next week. She should use Coban to keep her jaw shut while sleeping. This will slowly turn into a chronic disorder that can be managed by primary care. Dr. Ortez not require follow-up. Patient and spouse updated Time: 21:14 Vital Signs: Vital signs: Vital Signs Temperature 98.0 F 01/05/22 16:09 Pulse Rate 107 H 01/05/22 16:09 Respiratory Rate 16 01/05/22 16:09 Blood Pressure 185/93 01/05/22 16:09 Pulse Oximetry 97 01/05/22 16:09 Oxygen Delivery Me thod 01/05/22 16:09 MDM - General Adult Medical Decision Making Differential diagnosis includes mandible dislocation patient underwent procedural sedation for manual reduction of the mandible. After fentanyl, Versed, etomidate, we were able to successfully reduce her mandible. It does easily displace and required Covan to keep her lower mandible in place. I did speak with Dr. Love of [facility] [place] who recommends no further treatment. We are to Coban her for the time being. Her should improve over the next week but she has at increased risk for redislocation. Patient is to follow-up with primary care this week. Patient did undergo postreduction imaging which reveals that his factor reduction of the mandible. No further diagnostics are warranted at this time. Patient will discharge home and will return here as needed. All questions answered in detail Discharge Plan Discharge Patient Disposition: Home Clinical Impression: Dislocated mandible, Closed dislocation of mandible Condition: Stable Prescriptions: No Action atorvastatin 10 mg tablet 10 mg PO DAILY Invokana 100 mg tablet 100 mg PO DAILY metformin 500 mg tablet 1,000 mg PO BID zinc 100 mg Tablet 100 mg PO DAILY ascorbic acid (vitamin C) [Vitamin C] 250 mg Tablet 250 mg PO DAILY lisinopril 10 mg tablet 10 mg PO DAILY cholecalciferol (vitamin D3) [Vitamin D3] 25 mcg (1,000 unit) Tablet 25 mcg PO DAILY fenofibrate 54 mg tablet 54 mg PO DAILY lansoprazole [Prevacid] 30 mg capsule,delayed release(DR/EC) 30 mg PO DAILY Qty: 30 0RF Discharge Orders: Discharge ED (Routine); Ordered 01/05/22 Ordered By: Estephanie Calabrese Referrals: Kristian Johnston MD [Primary Care Provider] - Discharge Diet: Full LIquid Discharge Activity: Resume usual activity Patient Instructions: Full Liquid Diet, Jaw Dislocation (ED), Opioid Safety, Pain Management Coding Level of Care Code ED Electrician Telephone for Elizabethg Fwd Exam Comprehensive
--- NOTE | 2022-01-05 20:36 | PC.NURSE ---
2037 time out completed 2038 50 fent and 2 of versed rass 0 2040 2 mg versed 2043 50 fent rass -2 2046 10 etomidate rass-1 2047 rass -4 2049 jaw reduced 2051 rass-4 2056 rass -4 2099 rass -4 2103 rass -4 2106 rass -2 0 rass -2 2114 rass -2 0 rass -2 2123 rass -2 2125 rass -1 2131 rass 0 8 rass 0 pt has returned to baseline o2 and mental status pt rass 0 see flow sheets for vitals
--- NOTE | 2022-01-05 21:11 | XRR_ITS ---
PROCEDURE INFORMATION: Exam: XR Bilateral Mandible Exam date and time: 01/05/2022 10:29 PM Age: 61 years old Clinical indication: Other: Post reduction of dislocation TECHNIQUE: Imaging protocol: XR of the Bilateral mandible. Views: 4 or more views COMPARISON: CR (HEAD, ) 01/05/2022 2:02 PM FINDINGS: Sinuses: Well aerated. No opacification. Bones/joints: No fracture. Dental: Patient is edentulous. Soft tissues: Unremarkable. XR/XR mandible <4V [id number] IMPRESSION: Negative for fracture or dislocation
[2022-01-05] MEDS: midazolam 1 mg/mL INJ 2 mL 2 MG IVP ×2 (21:59)
[2022-01-05] MEDS: sodium chloride 0.9% 1,000 ML 30 ML IV (21:59)
[2022-01-05] MEDS: fentaNYL 50 mcg/mL INJ 2mL 100 MCG IVP (22:31)
== END 2022-01-05 23:03 | disposition home or self-care (01) ==
PROVIDERS: Emergency Provider Nurse Practitioner; PCP Family Medicine
DX: S03.01XA Dislocation of jaw, right side, initial encounter (principal); X58.XXXA Exposure to other specified factors, initial encounter; E11.9 Type 2 diabetes mellitus without complications; I10 Essential (primary) hypertension; Z87.891 Personal history of nicotine dependence
CPT/HCPCS: 21480; 70100; 70110; 96360; 99152; 99285; 99291; J2250; J3010; J3490; J7030

== ENCOUNTER 2022-12-13 08:19 | Outpatient (CLI) | payer MEDICARE, MEDICAID, SELFPAY ==
--- NOTE | 2022-12-13 08:25 | MM_ITS ---
WS: [id number] SCREENING DIGITAL TOMOSYNTHESIS MAMMOGRAM WITH CAD HISTORY: SCREENING COMPARISON: 11/17/2014 Bilateral CC and MLO with tomosynthesis views submitted. Synthetic mammography reviewed. Computer aid ed detection analyzed. Breast composition: There are scattered areas of fibroglandular density. No suspicious masses, microc alcifications or architectural distortion. IMPRESSION: MM/[place] [id number] BI-RADS: 1-Negative FOLLOW UP: 1 Year Follow-up
== END 2022-12-13 08:20 | disposition home or self-care (01) ==
LOC: RAD 08:20
PROVIDERS: PCP Family Medicine; Visit Provider Family Medicine
DX: Z12.31 Encounter for screening mammogram for malignant neoplasm of breast (principal)
CPT/HCPCS: 77063; 77067

== ENCOUNTER 2023-01-13 14:39 | Outpatient (CLI) | payer MEDICARE, MEDICAID, SELFPAY ==
--- NOTE | 2023-01-13 14:50 | CT_ITS ---
WS: [id number] CT NECK TECHNIQUE: Contrast-enhanced CT of the neck with coronal and sagittal reformatted images. CLINICAL INFORMATION: DYSPHAGIA COMPARISON: CT 2009 DLP: 141.[address] scans at [facility] use at least one of these dose optimization techniques: automated e xposure control; mA and/or kV adjustment per patient size (includes targeted exams where dose is matc hed to clinical indication); or iterative reconstruction. FINDINGS: Mastoid air cells are well aerated. Partially visualized paranasal sinuses are well aerated. Normal p osterior nasopharynx. Normal parapharyngeal fat. Parotid glands are normal. Normal submandibular glan ds. Tiny RIGHT thyroid cyst. No evidence of supraglottic or glottic mass. Normal piriform sinuses. No rmal vallecula. Lung apices are well aerated. Retropharyngeal course LEFT cervical ICA. No cervical lymphadenopathy. Mild spondylitic changes cervi kiarra spine. No other suspicious findings. IMPRESSION: 1. Salivary glands are normal. 2. No evidence of supraglottic or glottic mass. 3. Tiny RIGHT thyroid cyst unchanged since 2009 4. No other suspicious findings.
[2023-01-13 16:06] LABS: Blood Urea Nitrogen 20 mg/dL (8-23); Glomerular Filtration Rate 72.7 mL/min (90-130)
[2023-01-13] MEDS: iohexol 350 mg/mL 500 mL Btl (per mL) IV (16:16)
== END 2023-01-13 14:40 | disposition home or self-care (01) ==
LOC: RAD 14:40
PROVIDERS: PCP Family Medicine; Visit Provider Specialist
DX: R13.10 Dysphagia, unspecified (principal)
CPT/HCPCS: 70491; 82565; 84520; Q9967

== ENCOUNTER 2023-01-16 07:55 | Outpatient (CLI) | payer MEDICARE, MEDICAID, SELFPAY ==
--- NOTE | 2023-01-16 08:11 | FL_ITS ---
WS: [id number] Barium swallow and esophagram, 01/16/2023 Clinical Data: DYSPHAGIA Comparison: Barium swallow, 06/20/2009. Fluoroscopy time: 1min [id number] # of spot films: 23 Findings: The patient swallowed the thick and thin barium, and it flowed through the hypopharynx without hesita tion. No stricture, mass, polyp or erosion was seen. The barium entered the esophagus and there was normal motility but tertiary contractions did occur. T here was a small sliding hiatal hernia distally with minimal gastroesophageal reflux. No mass, erosio n or ulcer was noted. Impression: Small hiatal hernia with minimal reflux.
== END 2023-01-16 07:56 | disposition home or self-care (01) ==
LOC: RAD 07:55
PROVIDERS: PCP Family Medicine; Visit Provider Specialist
DX: R13.10 Dysphagia, unspecified (principal)
CPT/HCPCS: 74220

== ENCOUNTER 2024-01-02 12:40 | Outpatient (CLI) | payer MEDICARE, MEDICAID, SELFPAY ==
--- NOTE | 2024-01-02 12:48 | MM_ITS ---
WS: [id number] BILATERAL 3D TOMOSYNTHESIS DIGITAL SCREENING MAMMOGRAPHY WITH CAD CLINICAL INFORMATION: SCREENING HISTORY: Screening mammogram. No current complaints. COMPARISON: 2022 TECHNIQUE: Bilateral CC and MLO views. FINDINGS: The breasts are composed of heterogeneous fibroglandular density tissue, which can limit the detectio n of small underlying mass lesions. No suspicious mass, asymmetry, calcifications, or architectural d istortion. No evidence of malignancy. Incidental punctate calcification RIGHT breast. Vascular calcif ication. MM/MM scr tomosynthesis [id number] IMPRESSION: DENSITY: The breasts are heterogeneously dense, which may obscure small masses. BI-RADS: 2 - Benign FOLLOW UP: 1 Year Follow-up Recommend return to annual screening mammography.
== END 2024-01-02 12:41 | disposition home or self-care (01) ==
LOC: RAD 12:41
PROVIDERS: PCP Family Medicine; Visit Provider Family Medicine
DX: Z12.31 Encounter for screening mammogram for malignant neoplasm of breast (principal); R92.333 Mammographic heterogeneous density, bilateral breasts; R92.1 Mammographic calcification found on diagnostic imaging of breast
CPT/HCPCS: 77063; 77067

== ENCOUNTER 2024-03-26 08:18 | Outpatient (CLI) | payer MEDICARE, MEDICAID, SELFPAY ==
--- NOTE | 2024-03-26 08:28 | CT_ITS ---
WS: [id number] CT NECK TECHNIQUE: Contrast-enhanced CT of the neck with coronal and sagittal reformatted images. CLINICAL INFORMATION: PAIN IN THROAT COMPARISON: CT 01/13/23 DLP: 139.[address] scans at [facility] use at least one of these dose optimization techniques: automated exposure control; mA and/or kV adjustment per patient size (includes targeted exams where dose is matched to clinical indication); or iterative reconstruction. FINDINGS: Parotid glands are normal. Normal submandibular glands. Normal posterior nasopharynx. Normal parapharyngeal fat. Tiny RIGHT thyroid cyst. No evidence of supraglottic or glottic mass. Normal subglottic airway. Normal piriform sinuses. Normal vallecula. Lung apices are well aerated. Retropharyngeal course LEFT cervical ICA. No cervical lymphadenopathy. Mastoid air cells are well aerated. Partially visualized paranasal sinuses are well aerated. Mild spondylitic changes cervical spine. CT/CT neck w con* [id number] IMPRESSION: 1. No acute or new neck findings 2. Salivary glands are normal. 3. No evidence of supraglottic or glottic mass. 4. Tiny stable RIGHT thyroid cyst
[2024-03-26 09:41] LABS: Blood Urea Nitrogen 12 mg/dL (8-23); Glomerular Filtration Rate 72.2 mL/min (90-130)
[2024-03-26] MEDS: iohexol 350 mg/mL 500 mL Btl (per mL) IV (09:53)
== END 2024-03-26 08:19 | disposition home or self-care (01) ==
PROVIDERS: PCP Family Medicine; Visit Provider Specialist
DX: R07.0 Pain in throat (principal); R93.89 Abnormal findings on diagnostic imaging of other specified body structures; M46.82 Other specified inflammatory spondylopathies, cervical region
CPT/HCPCS: 70491; 82565; 84520

== ENCOUNTER → 2024-11-17 08:04 | Outpatient (BNVA) | payer MEDICARE, SELFPAY | PROVIDERS: PCP Family Medicine; Visit Provider Thoracic Surgery (Cardiothoracic Vascular Surgery) | DX: I96 Gangrene, not elsewhere classified (principal); S91.301A Unspecified open wound, right foot, initial encounter; W22.8XXA Striking against or struck by other objects, initial encounter | CPT/HCPCS: 97597; 99203 ==

== ENCOUNTER 2025-01-04 10:18 | Outpatient (CLI) | payer MEDICARE, SELFPAY ==
--- NOTE | 2025-01-04 10:24 | MM_ITS ---
WS: [id number] BILATERAL 3D TOMOSYNTHESIS DIGITAL SCREENING MAMMOGRAPHY WITH CAD CLINICAL INFORMATION: SCREENING HISTORY: Screening mammogram. No current complaints. COMPARISON: 2023 TECHNIQUE: Bilateral CC and MLO views. FINDINGS: The breasts are composed of heterogeneous fibroglandular density tissue, which can limit the detection of small underlying mass lesions. No suspicious mass, asymmetry, calcifications, or architectural distortion. No evidence of malignancy. A few incidental punctate calcifications. Vascular calcification. MM/MM [facility] tomosynthesis [id number] IMPRESSION: DENSITY: The breasts are heterogeneously dense, which may obscure small masses. BI-RADS: 2 - Benign. FOLLOW UP: 1 Year Follow-up Recommend return to annual screening mammography.
== END 2025-01-04 10:19 | disposition home or self-care (01) ==
PROVIDERS: PCP Family Medicine; Visit Provider Family Medicine
DX: Z12.31 Encounter for screening mammogram for malignant neoplasm of breast (principal); R92.323 Mammographic fibroglandular density, bilateral breasts; R92.333 Mammographic heterogeneous density, bilateral breasts; R92.1 Mammographic calcification found on diagnostic imaging of breast
CPT/HCPCS: 77063; 77067